=== PATIENT | female | born 1960 | race Caucasian/White ===

== ENCOUNTER 2017-08-09 05:23 | Day surgery (SDC) | payer OTHER ==
[~2017-08-09] VITALS: Ht 170.2 cm; Wt 72.6 kg
[~2017-08-09 05:23] MED LIST: CALCIUM 600 +1 EA13 PO; CRESTOR10 MG PO; CYANOCOBALAM1000 MCG PO; CYMBALTA60 MG PO; ELAVIL10 MG PO; EXCEDRIN EXTRA1 EACH PO; EXTRA STRENGTH500 M1 PO; FIBER500 MG PO; FIORICET 50-301 EACH PO; FLONASE ALLERG9.9 ML BOTH NARES; FLOVENT DISKUS1 DIS2 IH; IRON325 M1 PO; LEVO-T150 MCG PO; LO-DOSE ASPIRIN81 M2 PO; MOBIC7.5 MG PO; PLAQUENIL200 MG PO; PROBIOTIC1 EAC1 PO; PROCARDIA XL30 MG PO; SINGULAIR10 MG PO; SYMBICORT60 INHALAT IH; TIROSINT150 MCG PO; TREXALL10 MG PO; ULTRACET1 TABLET PO; ULTRAM50 MG PO; VITAMIN D400 UNIT PO; VOLTAREN 1% GE100 GM TP; ZANTAC75 M1 PO; ZETIA10 MG PO
[2017-08-09] MEDS ORDERED: CEPHALEXIN500 M1 PO (06:05)
[2017-08-09 06:07] VITALS: BP 117/87
[2017-08-09 07:36] LABS: ANION GAP 6 MEQ/L (2-14); CHLORIDE 109 MEQ/L (99-109); GFR ESTIMATE (CALCULATED) > 59 mL/min/; GLUCOSE 77 mg/dL (70-99); POTASSIUM 4.2 MEQ/L (3.7-5.4); SAMPLE HEMOLYSIS CHECK 0; SAMPLE ICTERIC CHECK 0; SAMPLE LIPEMIA CHECK 0; SODIUM 143 MEQ/L (136-147); UREA NITROGEN (BUN) 9 mg/dL (9-23)
[2017-08-09] MEDS ORDERED: NORCO 5/3251 TABLET PO (09:12)
[2017-08-09 10:41] VITALS: BP 148/64
[2017-08-09 11:40] VITALS: BP 129/55
[2017-08-09 12:20] VITALS: BP 142/53
== END 2017-08-09 12:40 | disposition home or self-care (01) ==
LOC: SDC 05:23
PROVIDERS: Surgery
DX: K80.10 Calculus of gallbladder with chronic cholecystitis without obstruction (principal); Z98.84 Bariatric surgery status; Z86.19 Personal history of other infectious and parasitic diseases; E78.00 Pure hypercholesterolemia, unspecified; M06.9 Rheumatoid arthritis, unspecified; M79.7 Fibromyalgia; I73.00 Raynaud's syndrome without gangrene; L30.9 Dermatitis, unspecified; F32.9 Major depressive disorder, single episode, unspecified; Z86.72 Personal history of thrombophlebitis; I09.1 Rheumatic diseases of endocardium, valve unspecified; E03.9 Hypothyroidism, unspecified; Z79.82 Long term (current) use of aspirin; Z79.899 Other long term (current) drug therapy; E66.3 Overweight; Z68.26 Body mass index [BMI] 26.0-26.9, adult; J32.9 Chronic sinusitis, unspecified; Z86.711 Personal history of pulmonary embolism; F17.200 Nicotine dependence, unspecified, uncomplicated; Z88.1 Allergy status to other antibiotic agents; Z82.49 Family history of ischemic heart disease and other diseases of the circulatory system; Z83.49 Family history of other endocrine, nutritional and metabolic diseases
CPT/HCPCS: 74300; 80048; 88304; C1769; J0131; J1100; J1170; J1885; J2405; J2710; J3010; S0020